=== PATIENT | female | born 1975 | race Caucasian/White ===

== ENCOUNTER 2017-07-08 17:51 | Emergency (ER) | payer MEDICAID ==
[~2017-07-08] VITALS: Ht 165.1 cm; Wt 104.8 kg
[2017-07-08 17:52] VITALS: Ht 165.1 cm; Wt 104.8 kg
[2017-07-08 19:43] VITALS: BP 122/87
== END 2017-07-08 19:43 | disposition home or self-care (01) ==
LOC: ED 17:51
DX: J02.0 Streptococcal pharyngitis (principal); H92.09 Otalgia, unspecified ear

== ENCOUNTER 2018-11-28 07:03 | Emergency (ER) | payer SELFPAY ==
[~2018-11-28] VITALS: Ht 160 cm; Wt 89.8 kg
[2018-11-28 07:08] VITALS: Ht 160 cm; Wt 89.8 kg
[2018-11-28 09:28] VITALS: BP 151/100
== END 2018-11-28 10:11 | disposition home or self-care (01) ==
LOC: ED 07:03
DX: S90.811A Abrasion, right foot, initial encounter (principal); L03.115 Cellulitis of right lower limb; F17.210 Nicotine dependence, cigarettes, uncomplicated; V49.50XA Passenger injured in collision with unspecified motor vehicles in traffic accident, initial encounter; Y93.89 Activity, other specified; Y92.413 State road as the place of occurrence of the external cause; Y99.8 Other external cause status
CPT/HCPCS: 90715; J1885; Q0092